=== PATIENT | female | born 1950 | race Caucasian/White ===

== ENCOUNTER 2017-12-11 10:49 | Outpatient (CLI) | payer BC ==
--- NOTE | 2017-12-12 16:02 | MMO ---
MAMMOGRAM DIGITAL SCREENING BILATERAL: DATE: 12/11/17 HISTORY: 67-year-old female for routine bilateral screening mammogram. COMPARISON: 12/10/16, 11/15/15, and 11/09/14. TECHNIQUE: Digital mammographic views. Computer-aided detection (CAD) utilized. FINDINGS: There are scattered areas of fibroglandular density. There is no evidence of suspicious mass, suspicious calcifications, or architectural distortion. The re is no significant interval change since the prior mammogram. IMPRESSION: 1. BIRADS 1 - Negative. 2. Recommendation: routine bilateral annual screening mammogram (unless the patient develops suspici ous clinical findings that would warrant earlier imaging follow up). walter [] POS: [facility]
== END 2017-12-11 10:50 | disposition home or self-care (01) ==
LOC: SCSMAMMO 10:49
PROVIDERS: ATTEND Obstetrics & Gynecology
DX: Z12.31 Encounter for screening mammogram for malignant neoplasm of breast (principal)
CPT/HCPCS: 77067

== ENCOUNTER 2018-06-25 10:52 | Outpatient (CLI) | payer BC ==
--- NOTE | 2018-06-25 13:04 | ULT ---
ULTRASOUND THYROID STANDARD: History: Thyroid nodules. Comparison: 2017 FINDINGS: There are innumerable nodules throughout the thyroid. The dominant nodule in the right lobe of the th yroid is unchanged in size measuring up to 2.8 cm. Multiple spongiform and colloid nodules are seen t hroughout the right and left lobes of the thyroid. No significant increase in size. No new thyroid no dules. IMPRESSION: Similar appearance of multinodular goiter. POS: [facility]
== END 2018-06-25 10:53 | disposition home or self-care (01) ==
LOC: SCSULT 10:52
PROVIDERS: ATTEND Family Medicine
DX: E04.1 Nontoxic single thyroid nodule (principal); E04.2 Nontoxic multinodular goiter
CPT/HCPCS: 76536

== ENCOUNTER 2018-09-17 10:03 | Outpatient (CLI) | payer BC ==
--- NOTE | 2018-09-17 10:28 | RAD ---
Exam: 2 views lumbar spine HISTORY: Pain. Symptoms worsening. FINDINGS: 5 lumbar type vertebral bodies. No fracture. 3.9 mm of anterolisthesis of L4 for upon L5. There is associated mild posterior element hypertrophy. Diffuse bony mineralization. Partial sacralization of L5. Pseudoarthrosis of the L5 level with the sacrum. IMPRESSION: 1. Grade 1 anterolisthesis of L4 upon L5 2. Partial sacralization of L5. 3. Diffuse bony mineralization, without evidence of fracture.
--- NOTE | 2018-09-17 10:30 | RAD ---
Exam: 3 views thoracic spine HISTORY: Pain times many years. Symptoms worsening. FINDINGS: Mild loss of vertebral body height at the T5 and T6 levels, age indeterminate. MRI if there is pain or point tenderness in this region. Remaining thoracic vertebra are intact. There are 12 thoracic type vertebral bodies. Disc space heights are preserved. IMPRESSION: Mild loss of vertebral body height at T5 and T6, age indeterminate. MRI if clinically.
== END 2018-09-17 10:04 | disposition home or self-care (01) ==
LOC: SCSRAD 10:03
PROVIDERS: ATTEND Family Medicine
DX: M54.5 Low back pain (principal); M54.6 Pain in thoracic spine; M43.16 Spondylolisthesis, lumbar region; M85.80 Other specified disorders of bone density and structure, unspecified site
CPT/HCPCS: 72072; 72100

== ENCOUNTER 2018-10-13 14:51 | Outpatient (CLI) | payer BC ==
--- NOTE | 2018-10-13 17:21 | MRI ---
MRI THORACIC SPINE NONCONTRAST: 10/13/18 HISTORY: 68-year-old female with M48.54XD, nontraumatic compression fracture of T5. Mid back pain for one year. COMPARISON: No prior CT or MRI Of the thoracic spine. FINDINGS: Architectural [employer]ologist sagittal images demonstrate multilevel high grade degenerative disc disease in the cervical spi ne. There is mild anterior wedge compression loss of height of T6 vertebral body, with approximately 25% loss of height. There is a thin, mild horizontally oriented band of T2 hyperintensity and T1 hypointe nsity (best visualized on the STIR sagittal sequence) across the depressed superior end plate of T6 c onsistent with mild degree of edema. There is no hematoma in the prevertebral space. The rest of the thoracic vertebral body heights are maintained, including T5. The thoracic spinal cor d is normal in size and signal. No syrinx. Conus medullaris terminates at T12-L1. At T11-12, there is a shallow central and bilateral paracentral disc herniation. Similar finding at T12-L1, with a more focal central component. No neural foraminal stenosis. No cord impingement. There is also a tiny cent ral disc protrusion at T5-6. There is no significant bony retropulsion into the spinal canal. IMPRESSION: 1. Osteoporotic compression fracture of T6. The presence of bone marrow signal abnormality indic ates that it is either subacute or acute (probably subacute). 2. Degenerative disc changes at T11-12 and T12-L1. 3. High grade Cervical spondylosis, incompletely imaged. POS: [facility]
== END 2018-10-13 14:52 | disposition home or self-care (01) ==
LOC: SCSMRI 14:51
PROVIDERS: ATTEND Family Medicine
DX: M80.08XD Age-related osteoporosis with current pathological fracture, vertebra(e), subsequent encounter for fracture with routine healing (principal); M51.34 Other intervertebral disc degeneration, thoracic region; M51.35 Other intervertebral disc degeneration, thoracolumbar region; M47.812 Spondylosis without myelopathy or radiculopathy, cervical region
CPT/HCPCS: 72146

== ENCOUNTER 2018-11-18 14:39 | Outpatient (CLI) | payer BC ==
--- NOTE | 2018-11-18 15:37 | RAD ---
TWO VIEW ABDOMEN: 11/18/18 INDICATION: Constipation. Gastroesophageal reflux. FINDINGS: There is a nonspecific bowel gas pattern. Patchy density is present at the partially imaged left lowe r lung zone. No free air is seen. There are calcific densities overlying the pelvis indicating phlebo liths. Osseous structures are intact. IMPRESSION: 1. Nonspecific bowel gas pattern. 2. Patchy density at the left lung base. Recommend follow-up with dedicated two view chest serie s for more definitive evaluation. POS: [facility]
== END 2018-11-18 14:40 | disposition home or self-care (01) ==
LOC: SCSRAD 14:39
PROVIDERS: ATTEND Internal Medicine Gastroenterology
DX: K59.00 Constipation, unspecified (principal); K21.9 Gastro-esophageal reflux disease without esophagitis; R91.8 Other nonspecific abnormal finding of lung field; Z86.010 Personal history of colon polyps
CPT/HCPCS: 74019

== ENCOUNTER 2018-12-14 10:16 | Outpatient (CLI) | payer BC ==
--- NOTE | 2018-12-14 11:15 | MMO ---
Bilateral MAMMO Bilat Screen [facility]DI. CLINICAL HISTORY: Patient is 68 years old and is seen for screening. The patient has the following family history of breast cancer: maternal grandmother and daughter, at age 34, premenopausal. The patient has no personal history of cancer. The patient has a history of right Excisional Biopsy at age 23 - benign. VIEWS: The views performed were: bilateral craniocaudal and bilateral mediolateral oblique. FILMS COMPARED: The present examination has been compared to prior imaging studies performed at [facility] on 11/09/2014, 11/15/2015, 12/10/2016 and 12/11/2017. This study has been interpreted with the assistance of computer-aided detection. MAMMOGRAM FINDINGS: The breasts are heterogeneously dense, which could obscure a lesion on mammography. There are no suspicious masses, suspicious calcifications, or new areas of architectural distortion. IMPRESSION: THERE IS NO MAMMOGRAPHIC EVIDENCE OF MALIGNANCY. A ROUTINE FOLLOW-UP MAMMOGRAM IN 1 YEAR IS RECOMMENDED. ACR BI-RADS Category 1 - Negative MAMMOGRAPHY NOTE: 1. A negative mammogram report should not delay a biopsy if a dominant of clinically suspicious mass is present. 2. Approximately 10% to 15% of breast cancers are not detected by mammography. 3. Adenosis and dense breasts may obscure an underlying neoplasm. Reported by: CANDELARIO TIRADO MD Electonically Signed: [id number]
== END 2018-12-14 10:17 | disposition home or self-care (01) ==
LOC: SCSMAMMO 10:16
PROVIDERS: ATTEND Obstetrics & Gynecology
DX: Z12.31 Encounter for screening mammogram for malignant neoplasm of breast (principal); Z80.3 Family history of malignant neoplasm of breast
CPT/HCPCS: 77067

== ENCOUNTER 2018-12-15 11:52 | Outpatient (CLI) | payer BC ==
--- NOTE | 2018-12-15 13:10 | RAD ---
THORACIC SPINE 3 VIEWS: HISTORY: T-spine fracture. COMPARISON: 09/17/2018. FINDINGS: There is compression deformity involving the T6 vertebra which has been previously described. The anterior wedging and height loss does not appear significantly changed from 09/17/2018. The other thoracic vertebrae maintain height. No interval change apparent. IMPRESSION: The anterior wedge compression deformity at T6 is stable. POS: [facility]
== END 2018-12-15 11:53 | disposition home or self-care (01) ==
LOC: SCSRAD 11:52
PROVIDERS: ATTEND Family Medicine
DX: S22.059S Unspecified fracture of T5-T6 vertebra, sequela (principal); M43.8X4 Other specified deforming dorsopathies, thoracic region
CPT/HCPCS: 72072

== ENCOUNTER 2019-04-09 12:09 | Emergency (ER) | payer BC ==
[2019-04-09 12:59] LABS: #Basophils 0.1 thou/uL (0.0-0.2); #Eosinphils 0.3 thou/uL (0.0-0.7); #Lymphocytes 3.5 thou/uL (1.20-3.40); #Monocytes 0.5 thou/uL (0.11-0.59); %Basophils 1.3 % (0.0-1.0); %Eosinophils 4.2 % (0.0-10.0); %Lymphocytes 41.6 % (21.0-51.0); %Monocytes 5.8 % (0.0-10.0); %Neutrophils 47.2 % (42.0-75.0); Hemoglobin 14.2 g/dL (12.0-16.0); Mean Corpuscular HGB CONC 32.4 g/dL (32.0-36.0); Mean Corpuscular Hemoglobin 29.4 pg (27.0-31.0); Mean Corpuscular Volume 90.7 fL (78.0-98.0); Mean Platelet Volume 7.3 fL (7.4-10.4); Platelet Count 324 thou/uL (130-400); RBC Distribution Width 13.5 % (11.5-14.5); Red Blood Cell (RBC) Count 4.82 mill/uL (4.20-5.40); White Blood Cell (WBC) Count 8.4 thou/uL (4.8-10.8)
[2019-04-09 13:10] LABS: ALT (SGPT) 14 U/L (8-55); AST (SGOT) 21 U/L (5-34); Albumin 4.6 g/dL (3.4-4.8); Alkaline Phosphatase 74 U/L (40-110); Anion Gap 18 mmol/L (10-20); BUN (Urea Nitrogen) 20 mg/dL (9.8-20.1); Bilirubin, Total 0.8 mg/dL (0.2-1.2); Calc. Creatinine Clearance 0 mL/min (70-130); Calcium 10.2 mg/dL (7.8-10.44); Carbon Dioxide 24 mmol/L (23-31); Chloride 103 mmol/L (98-107); Estimated GFR-MDRD 50; Globulin 3.4 g/dL (2.4-3.5); Glucose 119 mg/dL (80-115); Magnesium 2.2 mg/dL (1.6-2.6); Potassium 3.1 mmol/L (3.5-5.1); Sodium 142 mmol/L (136-145)
[2019-04-09] MEDS ORDERED: Potassium Chloride 20 MEQ TAB ONE (13:48)
== END 2019-04-09 13:55 | disposition home or self-care (01) ==
LOC: SCSER 12:09
DX: I49.3 Ventricular premature depolarization (principal); E87.6 Hypokalemia; K21.9 Gastro-esophageal reflux disease without esophagitis; I10 Essential (primary) hypertension; Z79.01 Long term (current) use of anticoagulants; Z79.899 Other long term (current) drug therapy
CPT/HCPCS: 36415; 80053; 83735; 84443; 84484; 85025; 93005

== ENCOUNTER 2019-05-03 09:54 | Outpatient (CLI) | payer BC ==
[2019-05-03 13:11] LABS: ALT (SGPT) 12 U/L (8-55); AST (SGOT) 18 U/L (5-34); Albumin 4.4 g/dL (3.4-4.8); Alkaline Phosphatase 71 U/L (40-110); Bilirubin, Direct 0.2 mg/dL (0.1-0.3); Bilirubin, Total 0.6 mg/dL (0.2-1.2); Protein, Total 7.1 g/dL (6.0-8.3)
--- NOTE | 2019-05-03 13:51 | ULT ---
HEPATIC ULTRASOUND WITH DOPPLER: Date: 05/03/19 INDICATION: Abdominal pain. FINDINGS: Exam is somewhat limited due to overlying bowel gas. The gallbladder has a normal appearance. No evidence of gallstones. Common duct is normal caliber. Vi sualized liver is unremarkable with no focal mass lesion. The spleen is unremarkable. Pancreas is obs cured. Aorta is partially imaged and appears unremarkable. Color Doppler with spectral analysis performed. The portal veins, hepatic veins, and hepatic arteries show normal hepatopetal blood flow with Doppler. The kidneys were not imaged. IMPRESSION: Unremarkable exam. POS: [facility]
== END 2019-05-03 09:55 | disposition home or self-care (01) ==
LOC: SCSULT 09:54
PROVIDERS: ATTEND Internal Medicine Gastroenterology
DX: K21.9 Gastro-esophageal reflux disease without esophagitis (principal); K59.09 Other constipation; R10.11 Right upper quadrant pain
CPT/HCPCS: 36415; 76705; 80076

== ENCOUNTER 2019-09-03 11:13 | Outpatient (CLI) | payer BC ==
--- NOTE | 2019-09-03 12:45 | CT ---
BRAIN CT WITHOUT IV CONTRAST: HISTORY: Headaches, right-sided frontal knot. FINDINGS: No evidence for a soft tissue or osseous mass in the region of palpable concern. There are some high er-attenuation mucosal changes in the left sphenoid sinus indicating chronicity. No focal mass or mi dline shift. No intra- or extraaxial hemorrhage. No sinus air fluid level. The mastoids are clear. IMPRESSION: 1. No significant acute intracranial process. 2. Mucosal changes in the left sphenoid sinus, evidence for chronic mucosal process. 3. No evidence for soft tissue or bony mass in the region of palpable concern. POS: [facility]
== END 2019-09-03 11:14 | disposition home or self-care (01) ==
LOC: SCSCT 11:13
PROVIDERS: ATTEND Family Medicine
DX: R51 Headache (principal); M89.8X8 Other specified disorders of bone, other site
CPT/HCPCS: 70450

== ENCOUNTER 2019-12-10 07:47 | Outpatient (CLI) | payer BC ==
--- NOTE | 2019-12-10 09:02 | ULT ---
EXAM: US Abdominal CLINICAL HISTORY: Abdominal pain. COMPARISON: None. FINDINGS: Pancreas: The head and proximal pancreatic body have a normal echotexture. The remainder the pancrea s is obscured by bowel gas IVC: Visualized IVC has a normal caliber. Aorta: Visualized aorta has a normal caliber. Liver:Slightly heterogeneous echotexture which may be due to hepatic steatosis or hepatocellular dise ase. Limited evaluation for hepatic masses and intrahepatic biliary dilatation. The contour of the hepatic margin is maintained. Right hepatic lobe measures 12.2 cm Gallbladder: No sonographic evidence of cholelithiasis, gallbladder wall thickening or pericholecysti c fluid. Landis's sign:Negative CBD: 0.3 cm common bile duct diameter Portal vein: Patent. Appropriate directional flow. Right kidney: Normal cortical echotexture. No hydronephrosis. Exophytic hypoechoic focus emanating f rom the right renal cortex compatible with a 1.2 x 1.1 x 1.0 cm cyst. Right kidney measuring 7.7 x 4.9 x 5.2 cm in length. Left kidney: Normal cortical echotexture. No hydronephrosis. Left kidney measuring 9.4 x 4.7 x 4.6 cm in length Spleen: Normal echotexture, measuring 7.1 cm IMPRESSION: 1. Limited evaluation due to bowel gas. 2. No acute abnormality in the abdomen.
== END 2019-12-10 07:48 | disposition home or self-care (01) ==
LOC: SCSULT 07:47
PROVIDERS: ATTEND Internal Medicine Gastroenterology
DX: K21.9 Gastro-esophageal reflux disease without esophagitis (principal); R10.9 Unspecified abdominal pain; K59.00 Constipation, unspecified; Z86.010 Personal history of colon polyps
CPT/HCPCS: 93975

== ENCOUNTER 2020-01-20 11:12 | Outpatient (CLI) | payer BC ==
--- NOTE | 2020-01-20 14:39 | CT ---
CT ABDOMEN WITH AND WITHOUT IV CONTRAST: INDICATION: Abdominal pain. FINDINGS: Lung bases clear. Review of the noncontrast images shows no evidence of urinary tract calculus. The lung bases are clear. The liver, spleen, and pancreas appear unremarkable. On the postcontrast images both kidneys show symmetric enhancement. There are numerous small bone de nsity lesions seen throughout both kidneys consistent with numerous renal cystic lesions most all of which are subcentimeter. The largest ones measure up to 1.0 cm. These are too numerous to count and the small ones are too small to adequately characterize. No enhancing renal mass. The lower urinary tract and lower abdomen and pelvic structures are not evaluated on this abdomen onl y exam. The visualized small and large bowel loops appear unremarkable as imaged. There is a cystic mass in the lower left abdomen which is incompletely imaged on this abdomen only st udy. This appears to represent a bilobed cystic mass measuring approximately 4.5 cm. Ovarian origin would be suspected but not confirmed. IMPRESSION: 1. A bilobed cystic mass in the lower left abdomen/upper pelvis which is incompletely evaluated on this abdomen-only study. Ovarian origin would be suspected. Recommend further evaluation with CT pe lvis to complete the exam. 2. There are numerous small low-density lesions seen throughout both kidneys most consistent with nu merous tiny renal cysts as discussed above. CODE T POS: [facility]
== END 2020-01-20 11:13 | disposition home or self-care (01) ==
LOC: SCSCT 11:12
PROVIDERS: ATTEND Physician Assistant Medical
DX: K59.00 Constipation, unspecified (principal); R10.12 Left upper quadrant pain; R14.0 Abdominal distension (gaseous); N28.9 Disorder of kidney and ureter, unspecified; R19.04 Left lower quadrant abdominal swelling, mass and lump; Z80.9 Family history of malignant neoplasm, unspecified
CPT/HCPCS: 74170; 82565

== ENCOUNTER 2020-01-27 11:02 | Outpatient (CLI) | payer BC ==
--- NOTE | 2020-01-27 13:01 | CT ---
CT Pelvis W Con History: Abdominal swelling left lower quadrant. Mass Comparison: CT abdomen January 20, 2020 Findings: Aortic contour is nonaneurysmal. There is a bilobed cystic structure within the left adnexa measuring approximate 4.5 cm. No retroperitoneal periaortic adenopathy. No free fluid within the pelvis. Visualized appendix is normal. Advanced degenerative disc space disease at L4/L5. L5 is a lumbosacral transitional vertebra. Numerous perineural cysts of the sacral nerve roots. Impression: Bilobed 4.5 cm left adnexal cystic structure for which nonemergent pelvic ultrasound and gynecologic consultation recommended.
== END 2020-01-27 11:03 | disposition home or self-care (01) ==
LOC: SCSCT 11:02
PROVIDERS: ATTEND Physician Assistant Medical
DX: R19.04 Left lower quadrant abdominal swelling, mass and lump (principal); N83.8 Other noninflammatory disorders of ovary, fallopian tube and broad ligament
CPT/HCPCS: 72193

== ENCOUNTER 2021-12-06 10:13 | Outpatient (CLI) | payer BC | END 2021-12-06 10:14 | disposition home or self-care (01) | LOC: NM 10:13 | PROVIDERS: ATTEND Internal Medicine Gastroenterology | DX: R10.13 Epigastric pain (principal); R11.0 Nausea; R93.2 Abnormal findings on diagnostic imaging of liver and biliary tract | CPT/HCPCS: 78227; A9537 ==

== ENCOUNTER 2023-05-22 13:20 | Outpatient (CLI) | payer BC | END 2023-05-22 13:21 | disposition home or self-care (01) | LOC: SCSRAD 13:20 | PROVIDERS: ATTEND Family Medicine | DX: R05.1 Acute cough (principal) | CPT/HCPCS: 71046 ==

== ENCOUNTER 2023-09-20 10:46 | Outpatient (CLI) | payer BC | END 2023-09-20 10:47 | disposition home or self-care (01) | LOC: SCSMRI 10:46 | PROVIDERS: ATTEND Family Medicine | DX: M75.101 Unspecified rotator cuff tear or rupture of right shoulder, not specified as traumatic (principal); S43.401A Unspecified sprain of right shoulder joint, initial encounter; S43.431A Superior glenoid labrum lesion of right shoulder, initial encounter; M19.011 Primary osteoarthritis, right shoulder ==

== ENCOUNTER 2024-10-29 11:43 | Outpatient (CLI) | payer BC | END 2024-10-29 11:44 | disposition home or self-care (01) | LOC: SCSRAD 11:43 | PROVIDERS: ATTEND Student in an Organized Health Care Education/Training Program | DX: R07.81 Pleurodynia (principal); M51.34 Other intervertebral disc degeneration, thoracic region; M25.78 Osteophyte, vertebrae; S22.060A Wedge compression fracture of T7-T8 vertebra, initial encounter for closed fracture | CPT/HCPCS: 72072 ==